=== PATIENT | male | born 1990 | race Asian ===

== ENCOUNTER 2024-08-29 15:38 | Emergency (ER) | payer BC ==
[~2024-08-29] VITALS: Ht 167.6 cm; Wt 56.7 kg
[2024-08-29] MEDS ORDERED: IBLOOD GLUCOSE TEST STRIP 1 EA TEST XX ONE (18:30)
[2024-08-29 19:03] LABS: BASOPHILS 0.1 % (0-2); HEMATOCRIT 43.5 % (35.0-50.0); HEMOGLOBIN 14.9 g/dL (12.0-18.0); LYMPHOCYTES 9.2 % (24-44); MCH 29.7 (27-36); MCHC 34.2 g/dl (30-36); MCV 86.9 fl (81-99); MONOCYTES 3.6 % (0-12); NEUTROPHILS 87.1 % (39-80); PLATELET COUNT 235 K/uL (140-440); RBC 5.01 M/ul (4.3-5.7); RDW 13.3 (10.5-15.0)
[2024-08-29] MEDS ORDERED: LIPITOR20 MG PO (19:08)
[2024-08-29] MEDS ORDERED: FLUTICASONE-SAL12 GM INH (19:09)
[2024-08-29] MEDS ORDERED: CETIRIZINE HCL10 MG PO (19:09)
[2024-08-29] MEDS ORDERED: METFORMIN HCL500 MG PO (19:10)
[2024-08-29] MEDS ORDERED: NASACORT10.8 ML NAS (19:10)
[2024-08-29 19:17] LABS: PH, VENOUS 7.383 (7.31-7.41)
[2024-08-29 19:21] LABS: ALBUMIN 4.7 g/dL (3.4-5.0); ALBUMIN/GLOBULIN RATIO 1.47 (1.1-2.4); ANION GAP 18.6 (7-21); BILIRUBIN, TOTAL 0.9 mg/dL (0.2-1.0); BUN/CREATININE RATIO 26.26 (6.0-28.6); CALCIUM 9.4 mg/dL (8.5-10.1); CREATININE, SERUM 0.99 mg/dL (0.70-1.30); MAGNESIUM 1.7 mg/dL (1.8-2.4); POTASSIUM 3.6 mmol/L (3.5-5.1); PROTEIN, TOTAL 7.9 g/dL (6.4-8.2)
[2024-08-29] MEDS ORDERED: MAGNESIUM SULFATE 2 GM/50 ML BAG IV ONE (19:45)
[2024-08-29 20:47] VITALS: BP 122/76
--- NOTE | 2024-08-31 18:37 | EKG ---
[facility] [address] [place] [address] Signed Normal sinus rhythm Normal ECG No previous ECGs available Confirmed by Isabell Lakhani MD () on 08/31/2024 6:37:25 PM Electronically Signed By: ISABELL LAKHANI MD 08/31/[id number] PATIENT NAME: ZHOU ROBERTO Electrocardiogram DATE OF : 89 PHYSICIAN: ISABELL LAKHANI MD REPORT #: [id number] REPORT IS CONFIDENTIAL AND NOT TO BE RELEASED WITHOUT AUTHORIZATION
== END 2024-08-29 20:27 | disposition home or self-care (01) ==
LOC: ED 15:38
PROVIDERS: Emergency Medicine; Family Medicine
DX: R55 Syncope and collapse (principal); E83.42 Hypomagnesemia; E11.9 Type 2 diabetes mellitus without complications; J45.909 Unspecified asthma, uncomplicated; Z88.0 Allergy status to penicillin; Z79.84 Long term (current) use of oral hypoglycemic drugs; Z79.899 Other long term (current) drug therapy
CPT/HCPCS: 36415; 80053; 82803; 83735; 84484; 85025; 93005; 93010; 96365; 99284-25; J3475